=== PATIENT | male | born 1950 | race Caucasian/White ===

== ENCOUNTER 2018-12-22 19:56 | Inpatient (IN) | payer BC, MEDICARE ==
[2018-12-22 22:06] LABS: #Eosinphils 0.5 thou/uL (0.0-0.7); #Lymphocytes 2.4 thou/uL (1.20-3.40); #Monocytes 0.8 thou/uL (0.11-0.59); #Neutrophils 5.4 thou/uL (1.40-6.50); %Basophils 0.5 % (0.0-1.0); %Eosinophils 5.3 % (0.0-10.0); %Lymphocytes 26.2 % (21.0-51.0); %Monocytes 8.6 % (0.0-10.0); %Neutrophils 59.4 % (42.0-75.0); Hemoglobin 14.7 g/dL (14.0-18.0); Mean Corpuscular HGB CONC 33.7 g/dL (32.0-36.0); Mean Corpuscular Hemoglobin 32.4 pg (27.0-31.0); Mean Corpuscular Volume 96.3 fL (78.0-98.0); Mean Platelet Volume 7.8 fL (7.4-10.4); Platelet Count 146 thou/uL (130-400); RBC Distribution Width 11.3 % (11.5-14.5); Red Blood Cell (RBC) Count 4.54 mill/uL (4.70-6.10); White Blood Cell (WBC) Count 9.1 thou/uL (4.8-10.8)
[2018-12-22 22:27] LABS: ALT (SGPT) 14 U/L (8-55); AST (SGOT) 22 U/L (5-34); Alkaline Phosphatase 127 U/L (40-150); Anion Gap 13 mmol/L (10-20); BUN (Urea Nitrogen) 18 mg/dL (8.4-25.7); Bilirubin, Total 0.9 mg/dL (0.2-1.2); Calc. Creatinine Clearance 0 mL/min (70-130); Calcium 9.4 mg/dL (7.8-10.44); Carbon Dioxide 25 mmol/L (23-31); Chloride 105 mmol/L (98-107); Estimated GFR-MDRD 61; Globulin 2.9 g/dL (2.4-3.5); Glucose 126 mg/dL (80-115); Potassium 4.1 mmol/L (3.5-5.1); Protein, Total 6.9 g/dL (5.8-8.1); Sodium 139 mmol/L (136-145)
--- NOTE | 2018-12-22 22:55 | ULT ---
US Venous Doppler Rt Unilat HISTORY: Right lower extremity edema, pain and redness FINDINGS: Deep veins interrogated include common femoral vein, femoral vein, popliteal vein, and posterior tibi al vein. These veins show normal compression and blood flow. No evidence of DVT. IMPRESSION: Negative Right venous duplex exam.
[2018-12-23] MEDS ORDERED: Acetaminophen 325 MG TAB PO PRN (01:25)
[2018-12-23] MEDS ORDERED: Ondansetron PF 4 MG/2 ML Vial IVP PRN ×2 (01:25→02:04)
[2018-12-23] MEDS ORDERED: Ondansetron ODT 4 MG TAB SL PRN (01:25)
[2018-12-23] MEDS ORDERED: hydrALAZINE 20 MG/ML VIAL SLOW IVP PRN (02:04)
[2018-12-23] MEDS ORDERED: Acetaminophen 500 MG TAB PO PRN (02:04)
[2018-12-23] MEDS ORDERED: Ondansetron ODT 4 MG TAB PO PRN (02:04)
[2018-12-23] MEDS: cefTRIAXone\\ROCEPHIN 2 GM in Sodium Chloride 0.9% 100 ML IVPB SCH (02:21)
[2018-12-23 03:51] VITALS: BMI 38.2
[2018-12-23 05:46] LABS: Hemoglobin A1c 4.3 % (4.0-6.0)
[2018-12-23 05:52] LABS: Band 2 % (5-11); Eosinophils 1 % (0-10); Hemoglobin 13.2 g/dL (14.0-18.0); Lymphocytes 19 % (21-51); MDiff Complete? YES; Mean Corpuscular HGB CONC 34.4 g/dL (32.0-36.0); Mean Corpuscular Hemoglobin 33.1 pg (27.0-31.0); Mean Corpuscular Volume 96.3 fL (78.0-98.0); Mean Platelet Volume 7.7 fL (7.4-10.4); Monocytes 3 % (0-10); Neutrophil 67 % (42-75); Platelet Count 125 thou/uL (130-400); Platelet Morphology Comment Appears Adequate; RBC Distribution Width 11.3 % (11.5-14.5); Reactive Lymphocytes 8 % (0-10); Red Blood Cell (RBC) Count 3.98 mill/uL (4.70-6.10); White Blood Cell (WBC) Count 7.5 thou/uL (4.8-10.8)
[2018-12-23 06:01] LABS: Anion Gap 10 mmol/L (10-20); BUN (Urea Nitrogen) 16 mg/dL (8.4-25.7); Calc. Creatinine Clearance 133 mL/min (70-130); Calcium 8.8 mg/dL (7.8-10.44); Carbon Dioxide 25 mmol/L (23-31); Chloride 106 mmol/L (98-107); Estimated GFR-MDRD 71; Glucose 95 mg/dL (80-115); Sodium 137 mmol/L (136-145)
--- NOTE | 2018-12-23 08:21 | HP ---
PRIMARY CARE PROVIDER: Dr. Denilson Godoy. CHIEF COMPLAINT: Right leg swelling. HISTORY OF PRESENT ILLNESS: This is a 68-year-old male, who presents to [facility] Emergency Department complaining of 3-4 day history of increasing swelling and redness of the right lower extremity extending into the medial right thigh. The patient states he has had approximately 2 prior episodes of similar redness and cellulitis in the past. The patient states he had an area of dry skin on the right heel that he had been scratching and rubbing inside of his boot. The patient noticed the redness and swelling several days after he noticed the abrasion on his right heel. The patient denied taking any specific home medication or remedy. The patient initially rated the pain as 1/10. The patient denied any documented fever, chills, shortness of breath or chest pain. The patient denied any specific drainage from open wounds. In the emergency room patient underwent general evaluation showing evidence of right lower extremity cellulitis, receiving vancomycin 1 g IV x1 in addition to 1 L of normal saline. The patient was referred to the Hospitalist Service for admission. PAST MEDICAL HISTORY: 1. Recurrent right lower extremity cellulitis. 2. Coronary artery disease. 3. Obstructive sleep apnea. PAST SURGICAL HISTORY: 1. Status post coronary artery bypass grafting. 2. Status post tonsillectomy. CURRENT MEDICATION: Oxybutynin 5 mg p.o. daily. ALLERGIES: NO KNOWN DRUG ALLERGIES. FAMILY HISTORY: No inheritable disease per patient report. SOCIAL HISTORY: The patient resides in the [facility]. . No alcohol, tobacco, or illicit drug use. Self-employed. REVIEW OF SYSTEMS: CONSTITUTIONAL: Negative for weight loss or gain, ability to conduct usual activities. SKIN: Negative for rash, itching. EYES: Negative for double vision, pain. ENT/MOUTH: Negative for nose bleeding, neck stiffness, pain, tenderness. CARDIOVASCULAR: Negative for palpitations, dyspnea on exertion, orthopnea. RESPIRATORY: Negative for shortness of breath, wheezing, cough, hemoptysis, fever or night sweats. GASTROINTESTINAL: Negative for poor appetite, abdominal pain, heartburn, nausea, vomiting, constipation, or diarrhea. GENITOURINARY: Negative for urgency, frequency, dysuria, nocturia. MUSCULOSKELETAL: Negative for pain, swelling. NEUROLOGIC/PSYCHIATRIC: Negative for anxiety, depression. ALLERGY/IMMUNOLOGIC: Negative for skin rash, bleeding tendency. Otherwise negative except as stated per HPI. PHYSICAL EXAMINATION: VITAL SIGNS: On admission, blood pressure 166/75, pulse 74, respiratory rate 18, temperature 98.6 degrees Fahrenheit, O2 saturation 93% on room air. GENERAL APPEARANCE: This is a 68-year-old male, alert and oriented x3, pleasant, conversant, in no acute distress. HEENT: Pupils are equal, round, reactive to light and accommodation. Extraocular muscles are intact. No scleral icterus. No conjunctival injection. Nares are patent. OP is clear. Teeth in good repair. NECK: Supple. No cervical adenopathy. No thyromegaly. No carotid bruits. No JVD appreciated. Cervical spine with full active and passive range of motion. No meningeal signs noted. CHEST: Lungs are clear to auscultation bilaterally. CARDIOVASCULAR: S1, S2 without noted murmur, rub, or gallop. ABDOMEN: Obese, soft, nontender, and nondistended. Bowel sounds are positive in all 4 quadrants. There is no hepatosplenomegaly. No abdominal bruits. No rebound or guarding appreciated. EXTREMITIES: Right lower extremity with chronic venous stasis changes of the lower of the lower extremity with associated erythema in the posterior aspect of the Achilles and calf region extending into the medial thigh. Erythematous patch and plaque of the right heel noted with excoriations. Pulses are palpable distally at the dorsalis pedis, posterior tibial, and popliteal arteries bilaterally. Capillary refill less than 2 seconds. NEUROLOGIC: Cranial nerves II through XII are grossly intact. No focal or lateralizing signs appreciated. PERTINENT LAB AND X-RAY FINDINGS: Sodium 139, potassium 4.1, chloride 105, CO2 of 25, BUN 18, creatinine 1.19, estimated GFR of 61, glucose 126, lactic acid level 0.8, calcium 9.4. LFTs within normal limits. CRP 5.33. CBC showed a white blood cell count of 9.1, hemoglobin 15, hematocrit 44, platelet count 146 with normal differential. ESR 8. IMAGING: Right lower extremity venous Doppler study dated 12/22/2018 showed no evidence for DVT. ASSESSMENT/PLAN: 1. Right lower extremity cellulitis. The patient will be admitted to the medical floor. We will continue vancomycin 1 g IV q.12 hours with additional Rocephin 2 g IV q.24 hours. Continue general supportive management and monitor for clinical response. 2. Chronic kidney disease, stage 2. Avoid nephrotoxic agents and limit contrast exposure. Repeat creatinine in the a.m. 3. Hyperglycemia, mild. We will continue to monitor glucose trend. No specific history of diabetes mellitus. 4. Prophylaxis. Sequential compression devices held due to right lower extremity cellulitis. Pepcid 20 mg p.o. b.i.d. CODE STATUS: Full. Surrogate medical decision maker is the patient's spouse. Job ID: [id number]
[2018-12-23] MEDS ORDERED: Prevnar 13-Val Conj/PF 0.5 ML SYRINGE IM ONE (09:00)
[2018-12-23] MEDS ORDERED: Vancomycin HCl 1 GM in Premix Bag 1 BAG IVPB SCH (09:00)
[2018-12-23] MEDS: Famotidine 20 MG TAB PO SCH ×2 (09:51→21:10)
[2018-12-23] MEDS: Vancomycin HCl 1.5 GM in Sodium Chloride 0.9% 250 ML 300 ML IVPB SCH (12:24)
--- NOTE | 2018-12-23 16:25 | PDOC.EVN ---
Event Note - Event Note Event Note: Patient seen and examined, cellulitis appears to be lightening some, no systemic symptoms currently. Will reassess in AM.
[2018-12-24] MEDS: Vancomycin HCl 1.5 GM in Sodium Chloride 0.9% 250 ML 300 ML IVPB SCH ×3 (00:56→23:51)
[2018-12-24] MEDS: cefTRIAXone\\ROCEPHIN 2 GM in Sodium Chloride 0.9% 100 ML IVPB SCH (03:43)
[2018-12-24] MEDS ORDERED: Melatonin 3 MG TAB PO SCH (04:00)
[2018-12-24 05:25] LABS: #Eosinphils 0.5 thou/uL (0.0-0.7); #Lymphocytes 2.4 thou/uL (1.20-3.40); #Monocytes 1.2 thou/uL (0.11-0.59); %Basophils 0.3 % (0.0-1.0); %Lymphocytes 29.4 % (21.0-51.0); %Monocytes 14.8 % (0.0-10.0); %Neutrophils 49.4 % (42.0-75.0); Hemoglobin 13.4 g/dL (14.0-18.0); Mean Corpuscular HGB CONC 33.6 g/dL (32.0-36.0); Mean Corpuscular Volume 98.2 fL (78.0-98.0); Mean Platelet Volume 7.8 fL (7.4-10.4); Platelet Count 131 thou/uL (130-400); RBC Distribution Width 11.2 % (11.5-14.5); Red Blood Cell (RBC) Count 4.04 mill/uL (4.70-6.10); White Blood Cell (WBC) Count 8.1 thou/uL (4.8-10.8)
[2018-12-24 05:43] LABS: Anion Gap 10 mmol/L (10-20); BUN (Urea Nitrogen) 18 mg/dL (8.4-25.7); Calc. Creatinine Clearance 132 mL/min (70-130); Calcium 9.1 mg/dL (7.8-10.44); Carbon Dioxide 26 mmol/L (23-31); Chloride 105 mmol/L (98-107); Estimated GFR-MDRD 70; Glucose 89 mg/dL (80-115); Sodium 137 mmol/L (136-145)
--- NOTE | 2018-12-24 08:12 | PDOC.PN ---
- Subjective Encounter Start Date: 12/24/18 Encounter Start Time: 10:30 Subjective: Patient without pain, fever, N/V. Can't see the rash. - Objective Resuscitation Status - Order Detail: 12/23/18 02:00 Resuscitation Status Routine Resuscitation Status: FULL: Full Resuscitation MAR Reviewed: Yes Vital Signs & Weight: Vital Signs (12 hours) Temp Pulse Resp BP Pulse Ox 12/24/18 04:00 97.8 F 64 20 110/62 95 12/24/18 00:00 97.6 F 63 20 156/77 H 96 12/23/18 20:15 98 Weight Weight 305 lb 11.2 oz I&O: 12/23/18 12/24/18 12/25/18 06:59 06:59 06:59 Intake Total 340 Balance 340 Result Diagrams: 12/24/18 04:35 12/24/18 04:35 Phys Exam - Physical Examination Constitutional: NAD HEENT: moist MMs Respiratory: no wheezing, no rales, no rhonchi, clear to auscultation bilateral Cardiovascular: RRR, no significant murmur Gastrointestinal: soft, non-tender, positive bowel sounds Musculoskeletal: edema present Neurological: non-focal, moves all 4 limbs Psychiatric: normal affect, A&O x 3 Deviation from normal: 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 , patch just dista -: to knee resolved, largest patch on left calf shrinking Dx/Plan (1) Cellulitis of right lower extremity Code(s): L03.115 - CELLULITIS OF RIGHT LOWER LIMB Status: Acute (2) Chronic kidney disease, stage 2 (mild) Code(s): N18.2 - CHRONIC KIDNEY DISEASE, STAGE 2 (MILD) Status: Chronic (3) CAD (coronary artery disease) Code(s): I25.10 - ATHSCL HEART DISEASE OF [place] CORONARY ARTERY W/O ANG PCTRS Status: Chronic (4) BECKY (obstructive sleep apnea) Code(s): G47.33 - OBSTRUCTIVE SLEEP APNEA (ADULT) (PEDIATRIC) Status: Chronic - Plan cont current plan of care, continue antibiotics, DVT proph w/lovenox one more day of IV antibiotics, if patch of cellulitis on thigh starts -: to shrink can switch to oral abx and d/c * . - Discharge Day Encounter end time: 10:40
[2018-12-24] MEDS: Famotidine 20 MG TAB PO SCH ×2 (09:54→20:48)
[2018-12-24] MEDS: Oxybutynin ER 5 MG TAB PO SCH (09:55)
[2018-12-24] MEDS: Enoxaparin Sodium 40 MG/0.4 ML SYRINGE SC SCH ×2 (09:55→20:47)
[2018-12-24] MEDS ORDERED: Zolpidem Tartrate 5 MG TAB PO PRN (11:18)
[2018-12-24] MEDS ORDERED: Melatonin 3 MG TAB PO PRN (11:19)
[2018-12-24 12:15] LABS: Vancomycin, Trough 15.2 ug/mL
[2018-12-25] MEDS: cefTRIAXone\\ROCEPHIN 2 GM in Sodium Chloride 0.9% 100 ML IVPB SCH (03:09)
[2018-12-25] MEDS: Famotidine 20 MG TAB PO SCH ×2 (09:21→20:02)
[2018-12-25] MEDS: Oxybutynin ER 5 MG TAB PO SCH (09:21)
[2018-12-25] MEDS: Enoxaparin Sodium 40 MG/0.4 ML SYRINGE SC SCH ×2 (09:22→20:01)
--- NOTE | 2018-12-25 09:54 | PDOC.PN ---
- Subjective Encounter Start Date: 12/25/18 Encounter Start Time: 09:52 Subjective: No new problem -: Denied fever, chills and pain. Right ligh redness is regressing. - Objective Resuscitation Status - Order Detail: 12/23/18 02:00 Resuscitation Status Routine Resuscitation Status: FULL: Full Resuscitation Vital Signs & Weight: Vital Signs (12 hours) Temp Pulse Resp BP Pulse Ox 12/25/18 08:00 98.4 F 78 18 146/103 H 93 L 12/25/18 04:00 97.5 F L 60 20 135/77 96 12/25/18 00:00 97.7 F 64 20 153/77 H 98 Weight Weight 305 lb 11.2 oz I&O: 12/24/18 12/25/18 12/26/18 06:59 06:59 06:59 Intake Total 2190 Balance 2190 Result Diagrams: 12/24/18 04:35 12/24/18 04:35 Phys Exam - Physical Examination obese HEENT: PERRLA, moist MMs Neck: no JVD, supple Respiratory: no wheezing, no rales, no rhonchi, clear to auscultation bilateral Cardiovascular: RRR, no significant murmur Gastrointestinal: soft, non-tender, no distention, positive bowel sounds obese Musculoskeletal: no edema, pulses present Neurological: non-focal, moves all 4 limbs Psychiatric: A&O x 3 Deviation from normal: regressing patchy right medial mid thigh erythema Dx/Plan (1) Obesity (BMI 35.0-39.9 without comorbidity) Code(s): E66.9 - OBESITY, UNSPECIFIED Status: Acute (2) Cellulitis of right lower extremity Code(s): L03.115 - CELLULITIS OF RIGHT LOWER LIMB Status: Acute (3) CAD (coronary artery disease) Code(s): I25.10 - ATHSCL HEART DISEASE OF [place] CORONARY ARTERY W/O ANG PCTRS Status: Chronic (4) BECKY (obstructive sleep apnea) Code(s): G47.33 - OBSTRUCTIVE SLEEP APNEA (ADULT) (PEDIATRIC) Status: Chronic (5) Psoriasis Code(s): L40.9 - PSORIASIS, UNSPECIFIED Status: Acute - Plan DC IV antibiotics. -: Start oral augmentin -: blood culture pending -: If erythema continues to regres on oral Abx, he will go home tomorrow * .
[2018-12-25] MEDS: Amoxicillin/Potassium Clav 875 MG TAB PO SCH ×2 (10:20→21:07)
--- NOTE | 2018-12-25 15:40 | EKG ---
Test Reason : ER INDICATION Blood Pressure : / mmHG Vent. Rate : 065 BPM Atrial Rate : 065 BPM P-R Int : 194 ms QRS Dur : 098 ms QT Int : 388 ms P-R-T Axes : 001 -22 017 degrees QTc Int : 403 ms Sinus rhythm with marked sinus arrhythmia Confirmed by DIANA FALLON [id number]), assistant production editor TERESA SANTANA ([id number]) on 12/25/2018 3:40:05 PM Referred By: Confirmed By:DIANA FALLON
[2018-12-26] MEDS: Enoxaparin Sodium 40 MG/0.4 ML SYRINGE SC SCH (10:06)
[2018-12-26] MEDS: Famotidine 20 MG TAB PO SCH (10:06)
[2018-12-26] MEDS: Oxybutynin ER 5 MG TAB PO SCH (10:06)
[2018-12-26] MEDS: Amoxicillin/Potassium Clav 875 MG TAB PO SCH (10:06)
[2018-12-26 11:41] VITALS: BP 152/84; TEMP 97.6
--- NOTE | 2018-12-27 07:58 | DIS ---
DATE OF ADMISSION: 12/22/2018 DATE OF DISCHARGE: 12/26/2018 DISCHARGE DIAGNOSES: 1. Right lower extremity cellulitis. 2. Morbid obesity with body mass index of 38. 3. Psoriasis. 4. Obstructive sleep apnea. 5. Coronary artery disease. HOSPITAL COURSE: The patient reportedly developed worsening swelling and redness of right lower extremity extending to the mid right thigh, which started after he crushed the lateral side of his ankle. There was no associated fever. Impression of cellulitis was made, and the patient was started on broad-spectrum antibiotic therapy with vancomycin and Rocephin. The patient also was treated with limb elevation. Redness improved, and the patient was subsequently transitioned to oral antibiotics with continued resolution of symptoms. He was subsequently discharged to complete oral antibiotics. Of note, however, during this hospitalization, the patient was found to have intermittent elevation in blood pressure up to 170s, requiring p.r.n. IV antihypertensives. Given the lability of this blood pressure, he was not started on any antihypertensives. The patient also has history of obstructive sleep apnea, but is not on CPAP currently. He used to have one, but currently does not. It is postulated that the noncompliance with CPAP may be contributory to the intermittent hypertension. The patient was advised to follow up with the PCP with a view to reevaluate the blood pressure as well as further referral for procurement of CPAP machine. PHYSICAL EXAMINATION: VITAL SIGNS: Temperature 97.6, pulse 70, respiratory rate 18, SpO2 94 on room air. Blood pressure is 152/84; however, prior about 4 hours earlier, it was 121/74. GENERAL: An obese male, in no obvious distress. Afebrile. Anicteric. Acyanotic. HEENT: Normocephalic and atraumatic. Pupils are equal and reacting to light. Oral mucosa is moist. CARDIOVASCULAR: Regular rhythm and rate with normal heart sounds one and two. RESPIRATORY: Good air entry bilaterally with no obvious crackle or rhonchi or use of accessory muscles. GI: Obese, soft, nontender, nondistended with normal bowel sounds. EXTREMITIES: A small patchy erythematous area on the medial aspect of middle thigh measuring about 5 cm in diameter noted. No edema or erythema of all other parts of the body noted. NEUROLOGIC: Conscious, alert, oriented x3 with appropriate mental status. Cranial nerves 2 through 12 are intact. The patient is ambulant. DISCHARGE MEDICATIONS: 1. Oxybutynin 10 mg p.o. daily. 2. Augmentin 875 mg p.o. b.i.d. for 15 doses. This discharge took less than 30 minutes. Job ID: [id number]
== END 2018-12-26 14:10 | disposition home or self-care (01) | DRG 603 ==
LOC: ERS 19:56 → SURG A 23:50
PROVIDERS: ADMIT Family Medicine; ATTEND Family Medicine
DX: L03.115 Cellulitis of right lower limb (principal); I25.10 Atherosclerotic heart disease of native coronary artery without angina pectoris; G47.33 Obstructive sleep apnea (adult) (pediatric); I12.9 Hypertensive chronic kidney disease with stage 1 through stage 4 chronic kidney disease, or unspecified chronic kidney disease; N18.2 Chronic kidney disease, stage 2 (mild); R73.9 Hyperglycemia, unspecified; L40.9 Psoriasis, unspecified; E66.01 Morbid (severe) obesity due to excess calories; Z95.1 Presence of aortocoronary bypass graft; Z99.89 Dependence on other enabling machines and devices; Z68.38 Body mass index [BMI] 38.0-38.9, adult; Z91.14 Patient's other noncompliance with medication regimen
CPT/HCPCS: 36415; 80048; 80053; 80202; 83036; 83605; 84484; 85007; 85025; 85027; 85652; 86140; 87040; 90471; 90670; 93005; 96365; G0009; J0360; J0696; J1650; J3370; J3490; J7050

== ENCOUNTER 2020-11-07 14:23 | Outpatient (CLI) | payer MEDICARE, OTHER | END 2020-11-07 14:24 | disposition home or self-care (01) | LOC: CTENTCT 14:23 | PROVIDERS: ATTEND Specialist | DX: J32.8 Other chronic sinusitis (principal) | CPT/HCPCS: 70486 ==

== ENCOUNTER 2020-11-26 14:10 | Outpatient (CLI) | payer MEDICARE, OTHER ==
[2020-11-26 16:50] LABS: Hemoglobin 14.1 g/dL (13.5-17.5)
[2020-11-26 16:57] LABS: Anion Gap 10 mmol/L (10-20); BUN (Urea Nitrogen) 20 mg/dL (8.4-25.7); Calc. Creatinine Clearance 0 mL/min (70-130); Calcium 9.4 mg/dL (7.8-10.44); Carbon Dioxide 28 mmol/L (23-31); Chloride 106 mmol/L (98-107); Glucose 84 mg/dL (80-115); Potassium 4.4 mmol/L (3.5-5.1); Sodium 140 mmol/L (136-145)
[2020-11-27 01:27] LABS: SARS-CoV-2 PCR by NAA Not Detected (NotDetected)
== END 2020-11-26 14:11 | disposition home or self-care (01) ==
LOC: LABBT 14:10
PROVIDERS: ATTEND Specialist
DX: Z01.812 Encounter for preprocedural laboratory examination (principal); Z20.822 Contact with and (suspected) exposure to COVID-19; J32.8 Other chronic sinusitis; J34.2 Deviated nasal septum; J34.3 Hypertrophy of nasal turbinates; J32.4 Chronic pansinusitis; J33.0 Polyp of nasal cavity
CPT/HCPCS: 80048; 85014; 85018; U0003; U0005; 87635; 93005; 93010

== ENCOUNTER 2020-11-29 10:26 | Day surgery (SDC) | payer MEDICARE, OTHER ==
[2020-11-28 10:27] VITALS: BMI 36.2
[2020-11-29] MEDS ORDERED: AFRIN NASAL MIST 15 ML BOT ONE (11:38)
[2020-11-29] MEDS ORDERED: Fentanyl 100 MCG/2 ML VIAL ONE (11:58)
[2020-11-29] MEDS ORDERED: EPINEPHrine 1 MG/ML AMP ONE (11:59)
[2020-11-29] MEDS ORDERED: Lidocaine 1% w/Epinephrine 1:100K 20 ML VIAL ONE (11:59)
[2020-11-29] MEDS ORDERED: Glycopyrrolate 0.2 MG/ML 5 ML SYRINGE ONE ×2 (13:04)
[2020-11-29] MEDS ORDERED: Rocuronium Bromide 10 MG/ML (10ML VIAL) ONE (13:04)
[2020-11-29] MEDS ORDERED: PHENYLEPHRINE-NS 100 MCG/ML 10 ML SYRINGE ONE (13:04)
[2020-11-29] MEDS ORDERED: Dexamethasone 20 MG/5 ML VIAL ONE (13:04)
[2020-11-29] MEDS ORDERED: Ondansetron PF 4 MG/2 ML Vial ONE (13:04)
[2020-11-29] MEDS ORDERED: PROPOFOL 200 MG/20 ML VIAL ONE (13:04)
[2020-11-29] MEDS ORDERED: Lidocaine 1% PF 5 ML VIAL ONE (13:04)
== END 2020-11-29 16:00 | disposition home or self-care (01) ==
LOC: SDC 10:26
PROVIDERS: ATTEND Specialist
PROC: 09SM0ZZ Reposition Nasal Septum, Open Approach (ICD-10-PCS; principal; 2020-11-29)
PROC: 09TL8ZZ Resection of Nasal Turbinate, Via Natural or Artificial Opening Endoscopic (ICD-10-PCS; 2020-11-29)
PROC: 09TL8ZZ Resection of Nasal Turbinate, Via Natural or Artificial Opening Endoscopic (ICD-10-PCS; 2020-11-29)
PROC: 099T8ZZ Drainage of Left Frontal Sinus, Via Natural or Artificial Opening Endoscopic (ICD-10-PCS; 2020-11-29)
PROC: 099Q8ZZ Drainage of Right Maxillary Sinus, Via Natural or Artificial Opening Endoscopic (ICD-10-PCS; 2020-11-29)
PROC: 099R8ZZ Drainage of Left Maxillary Sinus, Via Natural or Artificial Opening Endoscopic (ICD-10-PCS; 2020-11-29)
PROC: 099S8ZZ Drainage of Right Frontal Sinus, Via Natural or Artificial Opening Endoscopic (ICD-10-PCS; 2020-11-29)
PROC: 09TV8ZZ Resection of Left Ethmoid Sinus, Via Natural or Artificial Opening Endoscopic (ICD-10-PCS; 2020-11-29)
PROC: 09TU8ZZ Resection of Right Ethmoid Sinus, Via Natural or Artificial Opening Endoscopic (ICD-10-PCS; 2020-11-29)
DX: J32.9 Chronic sinusitis, unspecified (principal); J34.2 Deviated nasal septum; J34.3 Hypertrophy of nasal turbinates; J33.9 Nasal polyp, unspecified; G47.33 Obstructive sleep apnea (adult) (pediatric); E78.00 Pure hypercholesterolemia, unspecified; J30.1 Allergic rhinitis due to pollen; J30.81 Allergic rhinitis due to animal (cat) (dog) hair and dander; J30.89 Other allergic rhinitis; J34.89 Other specified disorders of nose and nasal sinuses; Z79.82 Long term (current) use of aspirin; Z95.5 Presence of coronary angioplasty implant and graft
CPT/HCPCS: J0171; J1100; J2405; J2704; J3010

== ENCOUNTER 2021-04-18 18:54 | Emergency (ER) | payer MEDICARE ==
[2021-04-18 19:20] LABS: Mean Corpuscular HGB CONC 33.9 g/dL (32.0-36.0); Mean Corpuscular Hemoglobin 33.1 pg (27.0-31.0); Mean Corpuscular Volume 97.5 fL (78.0-98.0); Platelet Count 126 thou/uL (130-400); RBC Distribution Width 11.5 % (11.5-14.5); Red Blood Cell (RBC) Count 4.24 mill/uL (4.70-6.10); White Blood Cell (WBC) Count 4.4 thou/uL (4.8-10.8)
[2021-04-18 19:42] LABS: Band 3 % (5-11); Eosinophils 9 % (0-10); Lymphocytes 39 % (21-51); MDiff Complete? YES; Monocytes 10 % (0-10); Neutrophil 34 % (42-75); Platelet Morphology Comment Appears Decreased; RBC Morphology Normal; Reactive Lymphocytes 5 % (0-10)
[2021-04-18 19:44] LABS: ALT (SGPT) 23 U/L (8-55); AST (SGOT) 22 U/L (5-34); Albumin 3.8 g/dL (3.4-4.8); Alkaline Phosphatase 146 U/L (40-110); Anion Gap 8 mmol/L (10-20); BUN (Urea Nitrogen) 16 mg/dL (8.4-25.7); Bilirubin, Total 0.5 mg/dL (0.2-1.2); Calc. Creatinine Clearance 0 mL/min (70-130); Calcium 9.4 mg/dL (7.8-10.44); Carbon Dioxide 29 mmol/L (23-31); Chloride 108 mmol/L (98-107); Globulin 2.8 g/dL (2.4-3.5); Glucose 102 mg/dL (83-110); Potassium 3.8 mmol/L (3.5-5.1); Protein, Total 6.6 g/dL (5.8-8.1); Sodium 141 mmol/L (136-145)
[2021-04-19 12:05] LABS: SARS-CoV-2 PCR by NAA DETECTED (NotDetected)
== END 2021-04-18 20:42 | disposition home or self-care (01) ==
LOC: ERS 18:54
DX: U07.1 COVID-19 (principal); G47.30 Sleep apnea, unspecified; E78.5 Hyperlipidemia, unspecified
CPT/HCPCS: 71045; 80053; 83880; 84484; 85025; 93005; 99285; U0003; U0005; 36415

== ENCOUNTER 2021-09-09 11:54 | Emergency (ER) | payer MEDICARE ==
[2021-09-10 02:55] LABS: SARS-CoV-2 PCR by NAA DETECTED (NotDetected)
== END 2021-09-09 12:49 | disposition home or self-care (01) ==
LOC: ERS 11:54
DX: U07.1 COVID-19 (principal); E78.5 Hyperlipidemia, unspecified; G47.30 Sleep apnea, unspecified
CPT/HCPCS: 99284; U0003; U0005

== ENCOUNTER 2024-03-14 13:54 | Outpatient (CLI) | payer MEDICARE, OTHER | END 2024-03-14 13:55 | disposition home or self-care (01) | LOC: EEG 13:54 | PROVIDERS: ATTEND Psychiatry & Neurology Neurology | DX: R41.3 Other amnesia (principal) | CPT/HCPCS: 95816 ==

== ENCOUNTER 2024-03-21 11:25 | Outpatient (CLI) | payer MEDICARE, OTHER ==
[~2024-03-21 11:25] MED LIST: Magnevist 469MG/ML 20 ML VIAL ONE
== END 2024-03-21 11:26 | disposition home or self-care (01) ==
LOC: MRI 11:25
PROVIDERS: ATTEND Psychiatry & Neurology Neurology
DX: R41.3 Other amnesia (principal); I67.82 Cerebral ischemia; G93.89 Other specified disorders of brain
CPT/HCPCS: 70553; 76377; A9579

== ENCOUNTER 2024-07-18 10:13 | Outpatient (CLI) | payer MEDICARE, OTHER ==
[2024-07-18 12:04] LABS: #Basophils 0.04 10x3/uL (0.0-0.2); %Basophils 0.7 % (0.0-1.0); %Lymphocytes 33.8 % (21.0-51.0); %Monocytes 9.2 % (0.0-10.0); %Neutrophils 47.3 % (42.0-75.0); Hematocrit 39.7 % (42.0-52.0); Hemoglobin 13.3 g/dL (14.0-18.0); Mean Corpuscular HGB CONC 33.5 g/dL (32.0-36.0); Mean Corpuscular Hemoglobin 31.7 pg (27.0-31.0); Mean Corpuscular Volume 94.7 fL (78.0-98.0); Platelet Count 152 10x3/uL (130-400); RBC Distribution Width 12.7 % (11.5-14.5); Red Blood Cell (RBC) Count 4.19 mill/uL (4.70-6.10)
[2024-07-18 12:27] LABS: ALT (SGPT) 24 U/L (8-55); AST (SGOT) 22 U/L (5-34); Albumin 3.7 g/dL (3.4-4.8); Alkaline Phosphatase 158 U/L (40-110); Anion Gap 10 mmol/L (10-20); BUN (Urea Nitrogen) 25 mg/dL (8.4-25.7); Bilirubin, Total 0.6 mg/dL (0.2-1.2); Calc. Creatinine Clearance 0 mL/min (70-130); Calcium 9.6 mg/dL (7.8-10.44); Carbon Dioxide 26 mmol/L (23-31); Chloride 109 mmol/L (98-107); Estimated GFR 51; Glucose 104 mg/dL (83-110); Potassium 4.8 mmol/L (3.5-5.1); Protein, Total 6.7 g/dL (5.8-8.1); Sodium 140 mmol/L (136-145)
== END 2024-07-18 10:14 | disposition home or self-care (01) ==
LOC: LABBT 10:13
PROVIDERS: ATTEND Internal Medicine Cardiovascular Disease
DX: Z01.812 Encounter for preprocedural laboratory examination (principal); R94.39 Abnormal result of other cardiovascular function study
CPT/HCPCS: 80053; 85025

== ENCOUNTER 2024-07-21 05:41 | Day surgery (SDC) | payer MEDICARE, OTHER ==
[2024-07-18 10:36] VITALS: BMI 37.5
[2024-07-21 07:12] LABS: Anion Gap 13 mmol/L (10-20); BUN (Urea Nitrogen) 24 mg/dL (8.4-25.7); Calc. Creatinine Clearance 83 mL/min (70-130); Calcium 9.4 mg/dL (7.8-10.44); Carbon Dioxide 22 mmol/L (23-31); Chloride 112 mmol/L (98-107); Estimated GFR 49; Glucose 91 mg/dL (83-110); Potassium 4.1 mmol/L (3.5-5.1); Sodium 143 mmol/L (136-145)
[2024-07-21] MEDS ORDERED: Heparin 10,000 UNITS/ 10 ML VIAL ONE (09:07)
[2024-07-21] MEDS ORDERED: fentaNYL 50 mcg/mL 1 mL Vial ONE ×2 (09:27→17:42)
[2024-07-21] MEDS ORDERED: Midazolam HCl 2 mg/2 ml Vial ONE (09:27)
[2024-07-21] MEDS ORDERED: Atropine Sulfate 1 mg/10 ml Syringe ONE (09:35)
[2024-07-21] MEDS ORDERED: Protamine Sulfate 50 MG/5 ML VIAL ONE (09:58)
[2024-07-21] MEDS ORDERED: hydrALAZINE 20 MG/ML VIAL ONE (09:58)
[2024-07-21] MEDS ORDERED: Nitroglycerin 0.4 MG TAB (25 Tab Bottle) SL PRN (12:19)
[2024-07-21] MEDS ORDERED: Acetaminophen/Codeine 30-300mg Tablet PO PRN ×2 (12:19)
[2024-07-21] MEDS ORDERED: Sodium Chloride 0.9% 200 ML IV PRN (12:19)
[2024-07-21] MEDS ORDERED: Sodium Chloride 0.9% 1,000 ML IV SCH (12:30)
== END 2024-07-21 17:30 | disposition home or self-care (01) ==
LOC: SDC 05:41
PROVIDERS: ATTEND Internal Medicine Cardiovascular Disease
PROC: 4A023N7 Measurement of Cardiac Sampling and Pressure, Left Heart, Percutaneous Approach (ICD-10-PCS; principal; 2024-07-21)
DX: I48.0 Paroxysmal atrial fibrillation (principal); I42.9 Cardiomyopathy, unspecified; I87.2 Venous insufficiency (chronic) (peripheral); I25.10 Atherosclerotic heart disease of native coronary artery without angina pectoris; I10 Essential (primary) hypertension; E11.9 Type 2 diabetes mellitus without complications; E66.9 Obesity, unspecified; E78.00 Pure hypercholesterolemia, unspecified; G47.33 Obstructive sleep apnea (adult) (pediatric); Z90.89 Acquired absence of other organs; Z86.16 Personal history of COVID-19; Z95.1 Presence of aortocoronary bypass graft; Z95.5 Presence of coronary angioplasty implant and graft; Z87.891 Personal history of nicotine dependence; Z68.37 Body mass index [BMI] 37.0-37.9, adult; Z79.82 Long term (current) use of aspirin; Z79.01 Long term (current) use of anticoagulants; Z79.1 Long term (current) use of non-steroidal anti-inflammatories (NSAID); Z79.899 Other long term (current) drug therapy
CPT/HCPCS: 80048; 85347; 93458; C1769 ×2; J0360; J1644; J2250; J2720; J3010; 99152; J0461

== ENCOUNTER 2024-09-18 18:44 | Emergency (ER) | payer MEDICARE, OTHER ==
[2024-09-18] MEDS ORDERED: Aspirin Chewable 81 MG TAB ONE (19:19)
[2024-09-18 20:00] LABS: #Basophils 0.03 10x3/uL (0.0-0.2); %Basophils 0.6 % (0.0-1.0); %Eosinophils 5.4 % (0.0-10.0); %Lymphocytes 32.8 % (21.0-51.0); %Monocytes 9.5 % (0.0-10.0); %Neutrophils 51.1 % (42.0-75.0); Hematocrit 38.6 % (42.0-52.0); Hemoglobin 13.4 g/dL (14.0-18.0); Mean Corpuscular HGB CONC 34.7 g/dL (32.0-36.0); Mean Corpuscular Hemoglobin 32.8 pg (27.0-31.0); Mean Corpuscular Volume 94.4 fL (78.0-98.0); Mean Platelet Volume 10.2 fL (7.4-10.4); Platelet Count 127 10x3/uL (130-400); RBC Distribution Width 12.7 % (11.5-14.5); Red Blood Cell (RBC) Count 4.09 mill/uL (4.70-6.10)
[2024-09-18 20:03] LABS: ALT (SGPT) 23 U/L (8-55); AST (SGOT) 20 U/L (5-34); Albumin 3.3 g/dL (3.4-4.8); Alkaline Phosphatase 118 U/L (40-110); Anion Gap 9 mmol/L (10-20); BUN (Urea Nitrogen) 27 mg/dL (8.4-25.7); Bilirubin, Total 0.6 mg/dL (0.2-1.2); Calc. Creatinine Clearance 0 mL/min (70-130); Calcium 9.4 mg/dL (7.8-10.44); Carbon Dioxide 26 mmol/L (23-31); Chloride 108 mmol/L (98-107); Estimated GFR 54; Globulin 2.8 g/dL (2.4-3.5); Glucose 106 mg/dL (83-110); Potassium 4.4 mmol/L (3.5-5.1); Protein, Total 6.1 g/dL (5.8-8.1); Sodium 139 mmol/L (136-145)
[2024-09-18 20:07] LABS: Troponin I Less than 0.010 ng/mL (< 0.028)
== END 2024-09-18 20:45 | disposition home or self-care (01) ==
LOC: ERS 18:44
DX: R07.2 Precordial pain (principal); R23.0 Cyanosis
CPT/HCPCS: 71045; 80053; 83880; 84484; 85025; 93005; 94760